=== PATIENT | male | born 1980 | race Caucasian/White ===

== ENCOUNTER → 2020-06-10 | Outpatient (CLI) | payer OTHER ==
--- NOTE | 2020-06-10 15:28 | US ---
EXAMINATION TYPE: US scrotum with doppler. Grayscale and color Doppler Duplex imaging performed of t he scrotum. DATE OF EXAM: 06/10/2020 COMPARISON: NONE CLINICAL HISTORY: testicular pain N50.812. Left testicular pain x 5 days and noted after heavy liftin g of children in swimming pool. EXAM MEASUREMENTS: TESTICLES: Right Testicle: 4.2 x 2.8 x 1.9 cm Left Testicle: 3.2 x 2.9 x 1.9 cm EPIDIDYMIS HEAD: Right Epididymis: 0.7 x 1.2 x 0.7 cm Left Epididymis: 1.1 x 0.5 x 1.2 cm Doppler performed to assess for testicular vascularity; good bilateral color flow and waveforms are s een. There is no evidence of testicular torsion. Right hemiscrotum: small epididymal head cyst noted; hydrocele is noted = 3.2 x 1.0 x 0.7cm. Left hemiscrotum: complex cyst noted in epididymal head = 0.5 x 0.4 x 0.3cm; Presence of varicocele s seen superiorly and inferiorly. No hernia is seen. IMPRESSION: 1. Small right hydrocele 2. Complex left epididymal cyst measuring 0.4 cm. 3. Left-sided varicoceles.
== END | disposition home or self-care (01) ==
LOC: RADUSWWP 12:41
PROVIDERS: ATTEND Family Medicine
DX: N43.3 Hydrocele, unspecified (principal); N50.3 Cyst of epididymis; I86.1 Scrotal varices
CPT/HCPCS: 76870; 93975

== ENCOUNTER 2024-05-19 12:36 | Emergency (ER) | payer OTHER ==
[2024-05-19 12:39] VITALS: TEMP 97.7
[2024-05-19] MEDS: FAMOTIDINE 20 MG/2 ML VIAL IV STA (12:48)
[2024-05-19] MEDS: methylPREDNISolone SOD SUCCI 125 MG/2 ML VIAL IV STA (12:48)
[2024-05-19] MEDS: diphenhydrAMINE 50 MG/ML 1 ML VIAL IVP STA (12:48)
[2024-05-19] MEDS: SODIUM CHLORIDE 0.9% 1,000 ML IV ONE (12:48)
--- NOTE | 2024-05-19 12:51 | ED ---
Allergic Reaction HPI - General Chief complaint: Allergic Reaction Stated complaint: Allergic Reaction (Bee) Time Seen by Provider: 05/19/24 12:41 Source: patient, RN notes reviewed Mode of arrival: ambulatory Limitations: no limitations - History of Present Illness Initial Comments: 44-year-old male presents emergency department with chief complaint of allergic reaction. Patient states he was stung by bee approxi-1 hour ago. Patient states is on the right side of his abdomen. Patient states never had a reaction like this in the past. Patient states he is very itchy has no difficulty breathing no difficulty swallowing. He states he did take some liquid Benadryl. Patient states his only known allergy is penicillin. - Related Data Previous Rx's Medication Instructions Recorded EPINEPHrine (Auto Inject) [Epipen] 0.3 mg IM ONCE PRN #1 pack 05/19/24 predniSONE 50 mg PO DAILY #3 tab 05/19/24 Allergies Allergy/AdvReac Type Severity Reaction Status Date / Time bee venom protein (honey bee) Allergy Rash/Hives Verified 05/19/24 12:40 Penicillins Allergy Rash/Hives Verified 05/19/24 12:40 Review of Systems ROS Statement: Those systems with pertinent positive or pertinent negative responses have been documented in the HPI. ROS Other: All systems not noted in ROS Statement are negative. Past Medical History Past Medical History: No Reported History Past Surgical History: No Surgical Hx Reported General Exam Limitations: no limitations General appearance: alert, in no apparent distress Head exam: Present: atraumatic, normocephalic, normal inspection Eye exam: Present: normal appearance, PERRL, EOMI. Absent: scleral icterus, conjunctival injection, periorbital swelling ENT exam: Present: normal exam, mucous membranes moist Neck exam: Present: normal inspection. Absent: tenderness, meningismus, lymphadenopathy Respiratory exam: Present: normal lung sounds bilaterally. Absent: respiratory distress, wheezes, rales, rhonchi, stridor Cardiovascular Exam: Present: normal rhythm, tachycardia, normal heart sounds. Absent: systolic murmur, diastolic murmur, rubs, gallop, clicks Neurological exam: Present: alert, oriented X3, CN II-XII intact Skin exam: Present: warm, dry, intact, normal color. Absent: rash Course Vital Signs 05/19/24 05/19/24 05/19/24 12:37 13:49 14:43 Temperature 97.7 F Pulse Rate 106 H 72 93 Respiratory 20 16 16 Rate Blood Pressure 126/91 130/85 121/83 O2 Sat by Pulse 98 100 98 Oximetry Medical Decision Making - Medical Decision Making Was pt. sent in by a medical professional or institution (ELIZABETH Dixon, IT SECURITY ARCHITECT, urgent care, hospital, or snf...) When possible be specific @ -No Did you speak to anyone other than the patient for history (EMS, parent, family, police, friend...)? What history was obtained from this source @ -No Did you review nursing and triage notes (agree or disagree)? Why? @ -I reviewed and agree with nursing and triage notes Were old charts reviewed (outside hosp., previous admission, EMS record, old EKG, old radiological studies, urgent care reports/EKG's, snf records)? Report findings @ -No old charts were reviewed Differential Diagnosis (chest pain, altered mental status, abdominal pain women, abdominal pain men, vaginal bleeding, weakness, fever, dyspnea, syncope, headache, dizziness, GI bleed, back pain, seizure, CVA, palpatations, mental h ealth, musculoskeletal)? @ -Contact dermatitis, anaphylaxis, allergic reaction, insect EKG interpreted by me (3pts min.). @ -None X-rays interpreted by me (1pt min.). @ -None done CT interpreted by me (1pt min.). @ -None done U/S interpreted by me (1pt. min.). @ -None done What testing was considered but not performed or refused? (CT, X-rays, U/S, labs)? Why? @ -None What meds were considered but not given or refused? Why? @ -None Did you discuss the management of the patient with other professionals (professionals i.e. ELIZABETH Dixon, IT SECURITY ARCHITECT, lab, RT, psych nurse, social worker palliative care, line up examiner, teacher, campus police officer, keycase assembler)? Give summary @ -No Was smoking cessation discussed for >3mins.? @ -No Was critical care preformed (if so, how long)? @ -No Were there social determinants of health that impacted care today? How? (Homelessness, low income, unemployed, alcoholism, drug addiction, transportation, low edu. Level, literacy, decrease access to med. care, mcc, rehab)? @ -No Was there de-escalation of care discussed even if they declined (Discuss DNR or withdrawal of care, Hospice)? DNR status @ -No What co-morbidities impacted this encounter? (DM, HTN, Smoking, COPD, CAD, Cancer, CVA, ARF, Chemo, Hep., AIDS, mental health diagnosis, sleep apnea, morbid obesity)? @ -None Was patient admitted / discharged? Hospital course, mention meds given and route, prescriptions, significant lab abnormalities, going to OR and other pertinent info. @ -Discharged patient presented for after reaction from bee sting. Patient was given Benadryl Solu-Medrol Pepcid patient feels greatly improved. Patient will be discharged on prednisone antihistamines and EpiPen. Undiagnosed new problem with uncertain prognosis? @ -No Drug Therapy requiring intensive monitoring for toxicity (Heparin, Nitro, Insulin, Cardizem)? @ -No Were any procedures done? @ -No Diagnosis/symptom? @ -Bee staying allergic reaction Acute, or Chronic, or Acute on Chronic? @ -Acute Uncomplicated (without systemic symptoms) or Complicated (systemic symptoms)? @ -complicated Side effects of treatment? @ -No Exacerbation, Progression, or Severe Exacerbation? @ -No Poses a threat to life or bodily function? How? (Chest pain, [place], [place], pneumonia, PE, COPD, DKA, ARF, appy, cholecystitis, CVA, Diverticulitis, Homicidal, Suicidal, threat to staff... and all critical care pts) @ -Yes anaphylaxis, respiratory arrest Disposition Clinical Impression: Allergic reaction to insect sting Disposition: HOME SELF-CARE Condition: Stable Instructions (If sedation given, give patient instructions): Insect Bite or Sting (ED), General Allergic Reaction (ED) Additional Instructions: Please return to the Emergency Department if symptoms worsen or any other concerns. Prescriptions: EPINEPHrine (Auto Inject) [Epipen] 0.3 mg IM ONCE PRN #1 pack PRN Reason: Anaphylaxis predniSONE 50 mg PO DAILY #3 tab Is patient prescribed a controlled substance at d/c from ED?: No Referrals: None,Stated [Primary Care Provider] - 1-2 days Time of Disposition: 14:16
[2024-05-19 13:50] VITALS: RESP 16
[2024-05-19 14:47] VITALS: BP 121/83; PULSE 93
== END 2024-05-19 14:50 | disposition home or self-care (01) ==
LOC: EC 12:36
DX: T63.481A Toxic effect of venom of other arthropod, accidental (unintentional), initial encounter (principal); Z88.0 Allergy status to penicillin; Z91.030 Bee allergy status
CPT/HCPCS: 99283; 96374; 96375 ×2; 96361; J1200; J3490; J2919

== ENCOUNTER → 2024-09-04 | Outpatient (CLI) | payer OTHER ==
[2024-09-05 09:36] LABS: Alternaria alternata IgE <0.10 kU/L; Aspergillus fumagatus IgE <0.10 kU/L; Birch IgE <0.10 kU/L; Cat Epith & Dander IgE <0.10 kU/L; Cladosporian herbarum IgE <0.10 kU/L; Cockroach IgE <0.10 kU/L; Dermato. farinae IgE <0.10 kU/L; Dog Dander IgE 0.32 kU/L; Elm IgE <0.10 kU/L; Maple (Box Elder) IgE <0.10 kU/L; Oak IgE <0.10 kU/L; Ragweed,Common IgE <0.10 kU/L; Red Top (Bentgrass) IgE <0.10 kU/L
== END | disposition home or self-care (01) ==
LOC: LABWHC1 15:57
PROVIDERS: ATTEND Internal Medicine Critical Care Medicine
DX: R05.3 Chronic cough (principal)
CPT/HCPCS: 36415; 82785; 85008; 86003